=== PATIENT | female | born 1975 | race Caucasian/White ===

== ENCOUNTER 2018-11-20 17:47 | Emergency (ER) | payer SELFPAY ==
[2018-11-20] MEDS ORDERED: Famotidine/PF 20 mg/2ml Vial ONE (17:52)
[2018-11-20] MEDS ORDERED: Dexamethasone 10 MG/ML VIAL ONE (17:52)
[2018-11-20] MEDS ORDERED: Ondansetron PF 4 MG/2 ML Vial ONE (17:53)
[2018-11-20 18:05] LABS: Lavender RECEIVED; Red RECEIVED
[2018-11-20] MEDS ORDERED: Sodium Chloride For Inhalation 0.9% 3 ML NEB ONE ×2 (18:07→18:08)
[2018-11-20] MEDS ORDERED: EPINEPHrine 1 MG/ML AMP ONE (18:21)
--- NOTE | 2018-11-20 19:48 | RAD ---
PORTABLE CHEST: Date: 11-20-18 Provided Clinical History: Shortness of breath. FINDINGS: No comparisons. The cardiac silhouette is normal for portable technique. Nodular density left suprahilar region. Lung s appear otherwise clear. No pleural fluid or pneumothorax apparent. IMPRESSION: Left suprahilar nodular opacity for which follow up PA and lateral views of the chest are recommended . POS: JOSE
== END 2018-11-20 19:48 | disposition home or self-care (01) ==
LOC: ERS 17:47
DX: T88.6XXA Anaphylactic reaction due to adverse effect of correct drug or medicament properly administered, initial encounter (principal); T36.0X5A Adverse effect of penicillins, initial encounter; R91.1 Solitary pulmonary nodule; I11.0 Hypertensive heart disease with heart failure; I50.9 Heart failure, unspecified; F31.9 Bipolar disorder, unspecified; F17.210 Nicotine dependence, cigarettes, uncomplicated
CPT/HCPCS: 71045; 93005; 96372; 96374; 96375; J0171; J1100; J2405; S0028

== ENCOUNTER 2019-02-19 23:50 | Emergency (ER) | payer SELFPAY ==
[2019-02-20] MEDS ORDERED: Nitroglycerin 2% Ointment 1 INCH/1 GM Packet ONE (00:45)
[2019-02-20] MEDS ORDERED: Furosemide 40 MG/4 ML VIAL ONE (00:45)
[2019-02-20 00:48] LABS: Bilirubin Negative (Negative); Blood, Urine Negative (Negative); Clarity CLEAR (Clear); Glucose, Urine (Dipstick) Negative (Negative); Leukocyte Negative (Negative); Nitrite Negative (Negative); Protein, Urine (Dipstick) Negative (Neg-Trace); Specific Gravity, Urine 1.006 (1.002-1.036); Urobilinogen 0.2 mg/dL (0.2-1.0)
[2019-02-20 01:06] LABS: #Basophils 0.1 thou/uL (0.0-0.2); #Eosinphils 0.4 thou/uL (0.0-0.7); #Lymphocytes 3.9 thou/uL (1.20-3.40); #Monocytes 0.8 thou/uL (0.11-0.59); #Neutrophils 8.3 thou/uL (1.40-6.50); %Basophils 0.6 % (0.0-1.0); %Eosinophils 2.8 % (0.0-10.0); %Lymphocytes 29.1 % (21.0-51.0); %Monocytes 6.2 % (0.0-10.0); %Neutrophils 61.3 % (42.0-75.0); Hemoglobin 14.5 g/dL (12.0-16.0); Mean Corpuscular HGB CONC 33.8 g/dL (32.0-36.0); Mean Corpuscular Hemoglobin 29.6 pg (27.0-31.0); Mean Corpuscular Volume 87.5 fL (78.0-98.0); Mean Platelet Volume 7.7 fL (7.4-10.4); Platelet Count 248 thou/uL (130-400); RBC Distribution Width 13.2 % (11.5-14.5); Red Blood Cell (RBC) Count 4.92 mill/uL (4.20-5.40); White Blood Cell (WBC) Count 13.5 thou/uL (4.8-10.8)
[2019-02-20 01:19] LABS: BHCG - Serum Negative (NEGATIVE); Pregs Control Background? CLEAR/WHITE (CLR/WHITE); Pregs Control Bar Appear? YES (CONTROL BAR)
[2019-02-20 01:28] LABS: ALT (SGPT) 13 U/L (8-55); AST (SGOT) 10 U/L (5-34); Albumin 3.7 g/dL (3.5-5.0); Alkaline Phosphatase 106 U/L (40-150); Anion Gap 13 mmol/L (10-20); BUN (Urea Nitrogen) 7 mg/dL (7.0-18.7); Bilirubin, Total 0.4 mg/dL (0.2-1.2); Calc. Creatinine Clearance 0 mL/min (70-130); Calcium 9.4 mg/dL (7.8-10.44); Carbon Dioxide 27 mmol/L (22-29); Chloride 103 mmol/L (98-107); Estimated GFR-MDRD 74; Glucose 116 mg/dL (70-105); Potassium 3.3 mmol/L (3.5-5.1); Protein, Total 6.7 g/dL (6.0-8.3); Sodium 140 mmol/L (136-145)
--- NOTE | 2019-02-20 07:36 | RAD ---
XR Chest 1 View Portable History: [Dyspnea] Comparison: Radiograph November 2018 Findings: Heart size upper limits of normal. Mild pulmonary venous congestion. Similar appearance nod ular density left upper lobe. Impression: Cardiomegaly and mild pulmonary venous congestion, although improved from November 2018. N odular density left upper lobe is similar. Nonemergent CT of the chest may be beneficial.
--- NOTE | 2019-02-22 14:36 | EKG ---
Test Reason : SOB Blood Pressure : / mmHG Vent. Rate : 077 BPM Atrial Rate : 077 BPM P-R Int : 188 ms QRS Dur : 096 ms QT Int : 432 ms P-R-T Axes : 035 018 050 degrees QTc Int : 488 ms Normal sinus rhythm Prolonged QT Abnormal ECG Confirmed by GEORGE CARLISLE ([id number]), telegraph editor ROC OLIVEROS ([id number]) on 02/22/2019 2:35:56 PM Referred By: Confirmed By:GEORGE CARLISLE
== END 2019-02-20 02:25 | disposition home or self-care (01) ==
LOC: ERS 23:50
DX: I11.0 Hypertensive heart disease with heart failure (principal); I50.9 Heart failure, unspecified; F17.210 Nicotine dependence, cigarettes, uncomplicated; Z79.891 Long term (current) use of opiate analgesic; Z79.899 Other long term (current) drug therapy; Z79.51 Long term (current) use of inhaled steroids
CPT/HCPCS: 71045; 80053; 81003; 83880; 84484; 84703; 85025; 93005; 96374; J1940

== ENCOUNTER 2019-04-14 15:39 | Emergency (ER) | payer SELFPAY ==
[2019-04-14 17:04] LABS: #Basophils 0.1 thou/uL (0.0-0.2); #Eosinphils 0.3 thou/uL (0.0-0.7); #Lymphocytes 3.4 thou/uL (1.20-3.40); #Monocytes 0.8 thou/uL (0.11-0.59); #Neutrophils 8.2 thou/uL (1.40-6.50); %Basophils 0.8 % (0.0-1.0); %Eosinophils 2.4 % (0.0-10.0); %Lymphocytes 26.5 % (21.0-51.0); %Monocytes 6.5 % (0.0-10.0); %Neutrophils 63.9 % (42.0-75.0); Hemoglobin 14.8 g/dL (12.0-16.0); Mean Corpuscular Hemoglobin 29.5 pg (27.0-31.0); Mean Corpuscular Volume 86.9 fL (78.0-98.0); Mean Platelet Volume 7.3 fL (7.4-10.4); Platelet Count 270 thou/uL (130-400); RBC Distribution Width 12.9 % (11.5-14.5); Red Blood Cell (RBC) Count 5.01 mill/uL (4.20-5.40); White Blood Cell (WBC) Count 12.9 thou/uL (4.8-10.8)
--- NOTE | 2019-04-14 17:20 | RAD ---
RADIOGRAPH CHEST 1 VIEW: DATE: 04/14/2019 TIME: 5:05 PM HISTORY: 43-year-old female with hypertension. Chest pain. COMPARISON: 02/20/2019 FINDINGS: Enlargement of the transverse diameter of cardiac shadow. At least some of this is due to magnificati on. Mild pulmonary venous engorgement. Diffuse mild nodular interstitial densities appear more prominent on the current study, probably due to technical differences. No consolidation. Faint questi onable left upper lobe ill-defined nodular density previously mentioned is more difficult to appreciate on the current study. No pneumothorax. No effacement of lateral costophrenic angles. IMPRESSION: Questionable mild pulmonary venous engorgement. Prominent interstitial markings. Nonspecific.
--- NOTE | 2019-04-14 17:22 | RAD ---
4 views right knee. HISTORY: Twisting injury to right knee with pain. AP, lateral and both oblique views right knee obtained. 4 views right knee demonstrate no evidence of right knee fractures, subluxations or bony lesions. IMPRESSION: Normal 4 views right knee.
[2019-04-14 17:26] LABS: ALT (SGPT) 12 U/L (8-55); AST (SGOT) 11 U/L (5-34); Albumin 3.9 g/dL (3.5-5.0); Alkaline Phosphatase 111 U/L (40-150); Anion Gap 11 mmol/L (10-20); BUN (Urea Nitrogen) 9 mg/dL (7.0-18.7); Bilirubin, Total 0.4 mg/dL (0.2-1.2); Calc. Creatinine Clearance 0 mL/min (70-130); Carbon Dioxide 27 mmol/L (22-29); Chloride 104 mmol/L (98-107); Estimated GFR-MDRD 74; Globulin 2.9 g/dL (2.4-3.5); Glucose 107 mg/dL (70-105); Potassium 3.1 mmol/L (3.5-5.1); Protein, Total 6.8 g/dL (6.0-8.3); Sodium 139 mmol/L (136-145)
--- NOTE | 2019-04-19 11:22 | EKG ---
Test Reason : Blood Pressure : / mmHG Vent. Rate : 088 BPM Atrial Rate : 088 BPM P-R Int : 188 ms QRS Dur : 092 ms QT Int : 430 ms P-R-T Axes : 042 009 057 degrees QTc Int : 520 ms Normal sinus rhythm Prolonged QT Abnormal ECG Confirmed by STEVEN NEWELL, TREE Martinez ([id number]), video editor ROC OLIVEROS ([id number]) on 04/19/2019 11:21:28 AM Referred By: Confirmed By:TREE HARRIS MD
== END 2019-04-14 20:37 | disposition home or self-care (01) ==
LOC: ERS 15:39
DX: S86.911A Strain of unspecified muscle(s) and tendon(s) at lower leg level, right leg, initial encounter (principal); I10 Essential (primary) hypertension; F31.9 Bipolar disorder, unspecified; F17.210 Nicotine dependence, cigarettes, uncomplicated; X50.1XXA Overexertion from prolonged static or awkward postures, initial encounter
CPT/HCPCS: 36415; 71045; 80053; 83880; 84484; 85025; 93005

== ENCOUNTER 2020-11-30 14:34 | Outpatient (CLI) | payer OTHER ==
--- NOTE | 2020-11-30 14:57 | RAD ---
PA AND LATERAL VIEWS OF THE CHEST: 11/30/20 HISTORY: COPD and asthma. COMPARISON: 04/19/19. FINDINGS: the heart size is normal. The lungs are well expanded without lobar consolidation, pneumothoraces or pleural effusions. No acute osseous abnormalities are seen. IMPRESSION: No radiographic evidence of acute cardiopulmonary process. POS: AH
== END 2020-11-30 14:35 | disposition home or self-care (01) ==
LOC: SCSRAD 14:34
PROVIDERS: ATTEND Nurse Practitioner Family
DX: R91.8 Other nonspecific abnormal finding of lung field (principal)
CPT/HCPCS: 71046

== ENCOUNTER 2021-01-04 11:26 | Inpatient (IN) | payer OTHER ==
[~2021-01-04 11:26] MED LIST: FLU VACC QS2020-21(6MOS UP)/PF 60 MCG/0.5 ML SYRINGE IM ONE
--- NOTE | 2021-01-04 11:53 | RAD ---
Exam: Chest one view HISTORY:Chest pain Comparison: 04/14/2019, 11/30/2020 FINDINGS: Cardiac silhouette: Normal Aorta: Unremarkable Pulmonary vessels: Normal Costophrenic angles: Clear LUNGS: No masses or consolidation. Pneumothorax: None Osseous abnormalities: None IMPRESSION: No acute cardiopulmonary process.
[2021-01-04 11:59] LABS: #Basophils 0.1 thou/uL (0.0-0.2); #Eosinphils 0.3 thou/uL (0.0-0.7); #Lymphocytes 2.8 thou/uL (1.20-3.40); #Monocytes 0.5 thou/uL (0.11-0.59); #Neutrophils 6.4 thou/uL (1.40-6.50); %Basophils 0.7 % (0.0-1.0); %Eosinophils 3.2 % (0.0-10.0); %Lymphocytes 27.7 % (21.0-51.0); %Monocytes 4.9 % (0.0-10.0); %Neutrophils 63.5 % (42.0-75.0); Hemoglobin 14.7 g/dL (12.0-16.0); Mean Corpuscular HGB CONC 33.6 g/dL (32.0-36.0); Mean Corpuscular Hemoglobin 29.6 pg (27.0-31.0); Mean Corpuscular Volume 88.1 fL (78.0-98.0); Mean Platelet Volume 7.5 fL (7.4-10.4); Platelet Count 258 thou/uL (130-400); RBC Distribution Width 13.5 % (11.5-14.5); Red Blood Cell (RBC) Count 4.98 mill/uL (4.20-5.40); White Blood Cell (WBC) Count 10.1 thou/uL (4.8-10.8)
[2021-01-04] MEDS ORDERED: Aspirin Chewable 81 MG TAB ONE (12:06)
[2021-01-04 12:40] LABS: ALT (SGPT) 15 U/L (8-55); AST (SGOT) 13 U/L (5-34); Albumin 3.7 g/dL (3.5-5.0); Alkaline Phosphatase 104 U/L (40-110); Anion Gap 12 mmol/L (10-20); BUN (Urea Nitrogen) 8 mg/dL (7.0-18.7); Bilirubin, Total 0.4 mg/dL (0.2-1.2); CK (CPK) 97 U/L (29-168); Calc. Creatinine Clearance 0 mL/min (70-130); Calcium 8.4 mg/dL (7.8-10.44); Carbon Dioxide 29 mmol/L (22-29); Chloride 100 mmol/L (98-107); Globulin 3.1 g/dL (2.4-3.5); Glucose 196 mg/dL (70-105); Lipase 14 U/L (8-78); Potassium 3.2 mmol/L (3.5-5.1); Protein, Total 6.8 g/dL (6.0-8.3); Sodium 138 mmol/L (136-145)
[2021-01-04 16:26] LABS: Troponin I Less than 0.010 ng/mL (< 0.028)
[2021-01-04] MEDS ORDERED: Acetaminophen 325 MG TAB PO PRN (17:30)
[2021-01-04] MEDS ORDERED: Ondansetron PF 4 MG/2 ML Vial IVP PRN (17:30)
[2021-01-04] MEDS ORDERED: Albuterol Sulfate 2.5 mg/3 ml Neb NEB PRN (17:33)
[2021-01-04] MEDS ORDERED: Potassium Chloride 20 MEQ TAB PO SCH (17:45)
[2021-01-04] MEDS ORDERED: Magnesium Oxide 400 MG TAB PO SCH (17:45)
--- NOTE | 2021-01-04 18:40 | PDOC.HHP ---
Hospitalist HPI Chest pain History of Present Illness: Patient is 45-year-old female with PMH of HTN chronic systolic CHF (EF 40-45%), asthma, obesity, tobacco abuse who presents to the ED with substernal chest pain that started 2 weeks ago. Pain is intermittent, pressure-like, radiates to the right shoulder and right neck area, associated with shortness of breath and lightheadedness. She reports chronic cough due to her asthma, this is at her baseline. She states she was seen by Dr. Harris in November, echo and stress test were ordered at that time, however she was only able to get the echo, not the stress test due to high co-pay. She says Echo done on December 13 showed EF of 40- 45%. Allergies/Adverse Reactions: Allergy/AdvReac Type Severity Reaction Status Date / Time amoxicillin Allergy Unverified 01/04/21 17:31 Past History: PMH: HTN chronic systolic CHF (EF 40-45%), asthma, obesity, tobacco abuse Surgical history: , hysterectomy, right knee surgery Family history: No known family history of heart disease Social history: She smokes 1 pack of cigarettes per day, has been smoking for the last 30 years. Drinks alcohol occasionally. Denies drug use Hospitalist HPI ROS Constitutional: denies: fever, chills Eyes: reports: vision change (Chronic, intermittent) ENT: denies: throat pain Respiratory: reports: cough, dry, shortness of breath Cardiovascular: reports: chest pain Gastrointestinal: denies: nausea, vomiting Genitourinary: denies: dysuria Skin: denies: rash Other: Chronic intermittent headache Hospitalist Exam General Appearance: NAD, awake alert General - other findings: Obese Eye: PERRL ENT: moist mucosa Neck: supple, no JVD Heart: RRR, no murmur Respiratory: no tachypnea Respiratory - other findings: Minimal wheezing bilaterally Gastrointestinal: soft, non-tender, non-distended, normal bowel sounds Extremities: no edema Neurological: normal sensation to touch, no weakness Musculoskeletal: normal strength Psychiatric: normal affect Hospitalist Results Result Diagrams: 01/04/21 11:49 01/04/21 11:49 Lab results: Laboratory Last Values WBC 10.1 thou/uL (4.8-10.8) 01/04/21 11:49 RBC 4.98 mill/uL (4.20-5.40) 01/04/21 11:49 Hgb 14.7 g/dL (12.0-16.0) 01/04/21 11:49 Hct 43.9 % (36.0-47.0) 01/04/21 11:49 MCV 88.1 fL (78.0-98.0) 01/04/21 11:49 MCH 29.6 pg (27.0-31.0) 01/04/21 11:49 MCHC 33.6 g/dL (32.0-36.0) 01/04/21 11:49 RDW 13.5 % (11.5-14.5) 01/04/21 11:49 Plt Count 258 thou/uL (130-400) 01/04/21 11:49 MPV 7.5 fL (7.4-10.4) 01/04/21 11:49 Neutrophils % 63.5 % (42.0-75.0) 01/04/21 11:49 Lymphocytes % 27.7 % (21.0-51.0) 01/04/21 11:49 Monocytes % 4.9 % (0.0-10.0) 01/04/21 11:49 Eosinophils % 3.2 % (0.0-10.0) 01/04/21 11:49 Basophils % 0.7 % (0.0-1.0) 01/04/21 11:49 Neutrophils # 6.4 thou/uL (1.40-6.50) 01/04/21 11:49 Lymphocytes # 2.8 thou/uL (1.20-3.40) 01/04/21 11:49 Monocytes # 0.5 thou/uL (0.11-0.59) 01/04/21 11:49 Eosinophils # 0.3 thou/uL (0.0-0.7) 01/04/21 11:49 Basophils # 0.1 thou/uL (0.0-0.2) 01/04/21 11:49 Sodium 138 mmol/L (136-145) 01/04/21 11:49 Potassium 3.2 mmol/L (3.5-5.1) L 01/04/21 11:49 Chloride 100 mmol/L (98-107) 01/04/21 11:49 Carbon Dioxide 29 mmol/L (22-29) 01/04/21 11:49 Anion Gap 12 mmol/L (10-20) 01/04/21 11:49 BUN 8 mg/dL (7.0-18.7) 01/04/21 11:49 Creatinine 0.86 mg/dL (0.6-1.1) 01/04/21 11:49 Estimated GFR (MDRD) 71 01/04/21 11:49 Glucose 196 mg/dL (70-105) H 01/04/21 11:49 Calcium 8.4 mg/dL (7.8-10.44) 01/04/21 11:49 Total Bilirubin 0.4 mg/dL (0.2-1.2) 01/04/21 11:49 AST 13 U/L (5-34) 01/04/21 11:49 ALT 15 U/L (8-55) 01/04/21 11:49 Alkaline Phosphatase 104 U/L (40-110) 01/04/21 11:49 Creatine Kinase 97 U/L (29-168) 01/04/21 11:49 Troponin I Less than 0.010 ng/mL (< 0.028) 01/04/21 15:43 Serum Total Protein 6.8 g/dL (6.0-8.3) 01/04/21 11:49 Albumin 3.7 g/dL (3.5-5.0) 01/04/21 11:49 Globulin 3.1 g/dL (2.4-3.5) 01/04/21 11:49 Albumin/Globulin Ratio 1.2 g/dL (1.2-2.2) 01/04/21 11:49 Lipase 14 U/L (8-78) 01/04/21 11:49 Chest x-ray Status: image reviewed by ca Hospitalist H&P A/P (1) Chest pain Code(s): R07.9 - CHEST PAIN, UNSPECIFIED Status: Acute Assessment and Plan: Patient presented with atypical chest pain. Troponin negative. EKG showed no acute ST/T changes. Plan: -Nitro SL prn -Cardiology consulted -NPO PMN (2) Hyperglycemia Code(s): R73.9 - HYPERGLYCEMIA, UNSPECIFIED Status: Acute Assessment and Plan: BG level is elevated. Patient denies hx of diabetes. Plan: -Hgb A1c (3) Hypokalemia Code(s): E87.6 - HYPOKALEMIA Status: Acute Assessment and Plan: Plan: -monitor and replace (4) Chronic systolic CHF (congestive heart failure) Code(s): I50.22 - CHRONIC SYSTOLIC (CONGESTIVE) HEART FAILURE Status: Chronic Assessment and Plan: Euvolemic at this time. Plan: -cont Lasix (5) Asthma Code(s): J45.909 - UNSPECIFIED ASTHMA, UNCOMPLICATED Status: Chronic Assessment and Plan: Plan: -Duoneb prn
[2021-01-04] MEDS ORDERED: Communication Order-Pharmacy FS SCH (18:45)
[2021-01-04 19:04] LABS: Troponin I Less than 0.010 ng/mL (< 0.028)
--- NOTE | 2021-01-04 19:07 | CON ---
DATE OF CONSULTATION: HISTORY OF PRESENT ILLNESS: The patient is a 45-year-old woman, who presented with substernal chest discomfort. The patient has a previous history of hypertension and cerebrovascular accident. She was recently seen for cardiac evaluation. She underwent an echocardiogram, which revealed a mild decreased left ventricular ejection fraction of 40% to 45%. The patient was scheduled to undergo a stress test. The patient presents to the emergency room with midsternal chest discomfort, that radiates into her right jaw and down her right arm. She states this lasts up to several minutes. The patient also reports having a persistent discomfort in her mid chest. PAST MEDICAL HISTORY: 1. CVA. 2. Hypertension. 3. Asthma. 4. Bipolar disorder. 5. Cardiomyopathy. PAST SURGICAL HISTORY: , hysterectomy, and knee surgery. SOCIAL HISTORY: Long history of tobacco abuse. FAMILY HISTORY: Positive family history of coronary artery disease. MEDICATIONS: 1. Lasix 20 mg daily. 2. Potassium 8 mEq two tablets daily. 3. Diovan/hydrochlorothiazide 325/25 daily. 4. Aspirin 81 daily. 5. Ventolin. ALLERGIES: AMOXICILLIN, LISINOPRIL, AND AUGMENTIN. REVIEW OF SYSTEMS: Ten-point system otherwise unremarkable except for increasing dyspnea and headaches. PHYSICAL EXAMINATION: GENERAL: This is an obese woman, in mild distress. VITAL SIGNS: Blood pressure 142/75. NECK: No jugular venous distention. LUNGS: Clear to auscultation. HEART: Regular rate and rhythm. Normal S1 and S2 with a 1/6 systolic murmur. ABDOMEN: Distended. EXTREMITIES: Show trace edema. VASCULAR: Radial pulses 2+. LABORATORY DATA: Sodium 138, potassium 3.2, chloride 100, bicarbonate 29, BUN 8, and creatinine 0.86. Troponin less than 0.01. White blood cell count 10.1, hemoglobin 14.2, hematocrit 43.9, and platelets are 258. EKG reveals her to have normal sinus rhythm with a prolonged QT interval. No acute ST-T wave changes. IMPRESSION AND PLAN: 1. Chest pain. 2. Cardiomyopathy. 3. Hypertension. 4. History of cerebrovascular accident. 5. Tobacco abuse. This patient presents with recurrent chest discomfort. She was found recently to have a cardiomyopathy. The patient will need to undergo further evaluation with stress testing or cardiac catherization during this hospitalization. We will follow this patient with you throughout her hospitalization. Job ID: [id number] [facility]
[2021-01-04 22:12] VITALS: BMI 50.3
[2021-01-05 01:20] LABS: SARS-CoV-2 PCR by NAA Not Detected (NotDetected)
[2021-01-05] MEDS: Aspirin Chewable 81 MG TAB PO SCH (05:10)
[2021-01-05] MEDS: Potassium Chloride 10 MEQ TAB PO SCH (05:10)
[2021-01-05] MEDS: Furosemide 20 MG TAB PO SCH (05:11)
[2021-01-05 06:10] LABS: #Basophils 0.1 thou/uL (0.0-0.2); #Eosinphils 0.4 thou/uL (0.0-0.7); #Lymphocytes 3.5 thou/uL (1.20-3.40); #Monocytes 0.6 thou/uL (0.11-0.59); #Neutrophils 4.8 thou/uL (1.40-6.50); %Basophils 0.8 % (0.0-1.0); %Eosinophils 3.8 % (0.0-10.0); %Monocytes 6.7 % (0.0-10.0); %Neutrophils 51.7 % (42.0-75.0); Mean Corpuscular Volume 88.3 fL (78.0-98.0); Mean Platelet Volume 7.3 fL (7.4-10.4); Platelet Count 249 thou/uL (130-400); RBC Distribution Width 13.2 % (11.5-14.5); Red Blood Cell (RBC) Count 4.66 mill/uL (4.20-5.40); White Blood Cell (WBC) Count 9.4 thou/uL (4.8-10.8)
[2021-01-05 06:31] LABS: Anion Gap 12 mmol/L (10-20); BUN (Urea Nitrogen) 11 mg/dL (7.0-18.7); Calc. Creatinine Clearance 164 mL/min (70-130); Calcium 8.6 mg/dL (7.8-10.44); Carbon Dioxide 30 mmol/L (22-29); Cardiac Risk 6.3 (Less than 4.5); Chloride 102 mmol/L (98-107); Cholesterol 184 mg/dl (< 200 Desired); Glucose 115 mg/dL (70-105); HDL Cholesterol 29 mg/dL (>60 Neg Risk); LDL Cholesterol, Calculated 94 mg/dL; Potassium 3.6 mmol/L (3.5-5.1); Sodium 140 mmol/L (136-145); Triglycerides 306 mg/dL (Less than 150)
[2021-01-05] MEDS: Valsartan 80 MG TAB PO SCH (09:28)
[2021-01-05] MEDS: Hydrochlorothiazide 25 MG TAB PO SCH (09:28)
--- NOTE | 2021-01-05 11:18 | PDOC.HOSPP ---
- Subjective Encounter Date: 01/05/21 Subjective: Patient states she has 2/10 chest pressure. She denies SOB. Also has int ermittent cough. - Objective Vital Signs & Weight: Vital Signs (12 hours) Temp Pulse Resp BP BP Pulse Ox 01/05/21 07:18 97.9 F 66 18 125/59 L 96 01/05/21 05:00 97.8 F 66 14 137/62 96 01/05/21 02:56 95 01/05/21 00:46 98.5 F 74 16 149/66 H 95 Weight Weight 257 lb 8 oz I&O: 01/04/21 01/05/21 01/06/21 06:59 06:59 06:59 Intake Total 557 Balance 557 Result Diagrams: 01/05/21 06:02 01/05/21 06:02 Hospitalist ROS - Review of Systems Respiratory: reports: cough. denies: shortness of breath Cardiovascular: reports: chest pain - Medication Medications: Active Medications Generic Name Dose Route Start Last Admin Trade Name Freq PRN Reason Stop Dose Admin Aspirin 81 mg 01/05/21 09:00 01/05/21 05:10 Aspirin Chewable 81 Mg Tab PO 81 mg DAILY RAÚL Administration Furosemide 20 mg 01/05/21 09:00 01/05/21 05:11 Furosemide 20 Mg Tab PO 20 mg DAILY RAÚL Administration Hydrochlorothiazide 25 mg 01/05/21 09:00 01/05/21 09:28 Hydrochlorothiazide 25 Mg Tab PO 25 mg DAILY RAÚL Administration Potassium Chloride 10 meq 01/05/21 09:00 01/05/21 05:10 Potassium Chloride 10 Meq Tab PO 10 meq DAILY RAÚL Administration Valsartan 160 mg 01/05/21 09:00 01/05/21 09:28 Valsartan 80 Mg Tab PO 160 mg DAILY RAÚL Administration Hospitalist Exam Vitals: Vital Signs (12 hours) Temp Pulse Resp BP BP Pulse Ox 01/05/21 07:18 97.9 F 66 18 125/59 L 96 01/05/21 05:00 97.8 F 66 14 137/62 96 01/05/21 02:56 95 01/05/21 00:46 98.5 F 74 16 149/66 H 95 Weight Weight 257 lb 8 oz General Appearance: NAD, awake alert ENT: moist mucosa Heart: RRR, no murmur Respiratory: CTAB, no wheezes Gastrointestinal: soft, non-tender, non-distended, normal bowel sounds Extremities: no edema Psychiatric: normal affect Hosp A/P (1) Chest pain Code(s): R07.9 - CHEST PAIN, UNSPECIFIED Status: Acute Plan: Troponin negative x3. Plan is for [facility] tomorrow morning by Dr. Harris. Plan: -Nitro SL prn -NPO PMN -Cardiology on board. Plan for [facility] tomorrow. (2) Chronic systolic CHF (congestive heart failure) Code(s): I50.22 - CHRONIC SYSTOLIC (CONGESTIVE) HEART FAILURE Status: Chronic Plan: Euvolemic Plan: -Continue Lasix (3) Pre-diabetes Code(s): R73.03 - PREDIABETES Status: Chronic Plan: Hgb A1c: 6. Plan: -will start on Metformin on discharge -discussed about lifestyle modification with diet and exercise (4) HLD (hyperlipidemia) Code(s): E78.5 - HYPERLIPIDEMIA, UNSPECIFIED Status: Chronic Plan: Plan: -will start her on Lipitor (5) Asthma Code(s): J45.909 - UNSPECIFIED ASTHMA, UNCOMPLICATED Status: Chronic Plan: stable. Plan: -cont home med -Albuterol neb prn (6) Hypokalemia Code(s): E87.6 - HYPOKALEMIA Status: Acute Plan: resolved. Plan: -cont KCL supplement
[2021-01-05] MEDS ORDERED: Communication Order-Pharmacy FS SCH (16:00)
--- NOTE | 2021-01-05 16:01 | PRG ---
DATE OF SERVICE: 01/05/2021 SUBJECTIVE: Ms. Samuel Lopez is doing well. No current complaints. OBJECTIVE: VITAL SIGNS: Blood pressure 111/55, pulse 74, and temperature 97. LUNGS: Clear to auscultation. HEART: Regular rate and rhythm. ABDOMEN: Soft, nontender, and nondistended. EXTREMITIES: No edema. IMPRESSION: 1. Chest pain. 2. Mild cardiomyopathy. 3. Tobacco abuse. 4. Hypertension. RECOMMENDATIONS: Samuel Lopez states she has cut back on her tobacco from one pack per day to one pack per 3 days. She has also been more compliant with her blood pressure medication. She says her blood pressure has been improved. She has had recurrent chest pain, is a high risk for underlying coronary artery disease. I would recommend coronary drop plus PCI. I discussed procedure in full detail with Ms. Samuel Lopez. Risks include, but not limited to the following; also discussed drug-coated versus nondrug-coated stent placement. There if needed. I also had a long discussion about drug-coated versus nondrug-coated stent placement. She states she can take Plavix for at least 6 months if needed. She has stated she has been noncompliant in the past, but states she has been compliant recently. No back injections or surgeries planned. No bleeding issues in the past. Otherwise, I have no further recommendations. Job ID: [id number]
[2021-01-05] MEDS: Mometasone 200 MCG/Formoterol 5 MCG 120 PUFF INHALER INH SCH (20:22)
[2021-01-05] MEDS ORDERED: Atorvastatin Calcium 40 MG TAB PO SCH (21:00)
[2021-01-06] MEDS: Aspirin Chewable 81 MG TAB PO SCH (05:08)
[2021-01-06] MEDS: Hydrochlorothiazide 25 MG TAB PO SCH (05:08)
[2021-01-06] MEDS: Potassium Chloride 10 MEQ TAB PO SCH (05:08)
[2021-01-06] MEDS: Furosemide 20 MG TAB PO SCH (05:09)
[2021-01-06] MEDS: Valsartan 80 MG TAB PO SCH (05:09)
[2021-01-06 05:56] LABS: #Basophils 0.1 thou/uL (0.0-0.2); #Eosinphils 0.4 thou/uL (0.0-0.7); #Lymphocytes 3.3 thou/uL (1.20-3.40); #Monocytes 0.5 thou/uL (0.11-0.59); %Eosinophils 4.1 % (0.0-10.0); %Lymphocytes 35.4 % (21.0-51.0); %Monocytes 5.8 % (0.0-10.0); %Neutrophils 53.7 % (42.0-75.0); Hemoglobin 13.9 g/dL (12.0-16.0); Mean Corpuscular HGB CONC 33.4 g/dL (32.0-36.0); Mean Corpuscular Hemoglobin 29.6 pg (27.0-31.0); Mean Corpuscular Volume 88.6 fL (78.0-98.0); Mean Platelet Volume 7.2 fL (7.4-10.4); Platelet Count 243 thou/uL (130-400); RBC Distribution Width 13.4 % (11.5-14.5); Red Blood Cell (RBC) Count 4.71 mill/uL (4.20-5.40); White Blood Cell (WBC) Count 9.2 thou/uL (4.8-10.8)
[2021-01-06 06:16] LABS: Anion Gap 9 mmol/L (10-20); BUN (Urea Nitrogen) 13 mg/dL (7.0-18.7); Calc. Creatinine Clearance 160 mL/min (70-130); Calcium 8.6 mg/dL (7.8-10.44); Carbon Dioxide 31 mmol/L (22-29); Chloride 101 mmol/L (98-107); Glucose 123 mg/dL (70-105); Magnesium 1.7 mg/dL (1.6-2.6); Potassium 3.3 mmol/L (3.5-5.1); Sodium 138 mmol/L (136-145)
[2021-01-06] MEDS ORDERED: Heparin 10,000 UNITS/ 10 ML VIAL ONE (06:33)
[2021-01-06] MEDS ORDERED: Nitroglycerin 100MG/250ML BOT 250 ML ONE (06:34)
[2021-01-06] MEDS ORDERED: Verapamil 5 MG/2 ML VIAL ONE (06:34)
[2021-01-06] MEDS ORDERED: Lidocaine 1% (PF) 30 ML VIAL ONE (07:17)
[2021-01-06] MEDS ORDERED: Midazolam HCl 2 mg/2 ml Vial ONE (07:22)
[2021-01-06] MEDS ORDERED: Fentanyl 100 MCG/2 ML VIAL ONE (07:22)
[2021-01-06] MEDS: Mometasone 200 MCG/Formoterol 5 MCG 120 PUFF INHALER INH SCH (07:38)
[2021-01-06] MEDS ORDERED: Acetaminophen/Codeine 30-300mg Tablet PO PRN ×2 (07:41)
[2021-01-06] MEDS ORDERED: Nitroglycerin 0.4 MG TAB (25 Tab Bottle) SL PRN (07:41)
[2021-01-06] MEDS ORDERED: Sodium Chloride 0.9% 200 ML IV PRN (07:41)
[2021-01-06] MEDS ORDERED: Sodium Chloride 0.9% 1,000 ML IV SCH (07:45)
[2021-01-06] MEDS ORDERED: Carvedilol 6.25 MG TAB PO SCH (09:00)
[2021-01-06] MEDS ORDERED: Iopamidol 370 76% 100 ML VIAL ONE (10:18)
[2021-01-06 12:27] VITALS: TEMP 97.5
[2021-01-06 12:28] VITALS: BP 138/85
--- NOTE | 2021-01-06 12:46 | PDOC.DS.DS ---
Provider Date of Admission: 01/04/21 15:10 Date of Discharge: 01/06/21 Admitting Provider: Paolo Gamez MD Primary Care Physician: Sis Perez APRN Course Hospital Course: Patient is a 5-year-old female with PMH of HTN, nonischemic cardiomyopathy, asthma, obesity, and tobacco abuse who presents to the ED with 2 weeks history of substernal chest pain. Patient was admitted and seen by Dr. Harris, LHC was done and showed no coronary artery disease. Her symptoms improved significantly during her hospitalization. Her chest pain is likely related to her asthma. Extensive counseling was done regarding smoking cessation. Labs showed elevated triglyceride level and blood glucose, Hgb A1c:6. Lifestyle modification with diet and exercise was discussed with the patient. Patient hemodynamically stable on the day of discharge, and would like to go home. Resuscitation Status: 01/04/21 17:30 Resuscitation Status Routine Resuscitation Status: FULL: Full Resuscitation Discussed with: Patient Lab Results: 01/06/21 05:48 01/06/21 05:48 Abnormal Lab Results - Last 48 hrs 01/05/21 06:02: Carbon Dioxide 30 H, Triglycerides 306 H 01/05/21 06:02: MPV 7.3 L, Lymphocytes # 3.5 H, Monocytes # 0.6 H 01/06/21 05:48: Potassium 3.3 L, Carbon Dioxide 31 H, Anion Gap 9 L 01/06/21 05:48: MPV 7.2 L Vitals: Vital Signs (12 hours) Temp Pulse Pulse Pulse Resp BP BP 01/06/21 12:25 97.5 F L 78 15 01/06/21 11:17 74 78 134/75 138/85 01/06/21 08:00 97.8 F 65 15 01/06/21 04:00 97.7 F 66 16 BP BP BP Pulse Ox 01/06/21 12:25 138/85 97 01/06/21 11:17 01/06/21 08:00 149/82 H 95 01/06/21 04:00 133/62 96 Weight Weight 257 lb 8 oz Physical Exam: The patient was seen and examined on the day of discharge. General Appearance: NAD, awake alert ENT: moist mucosa Respiratory: CTAB, no wheezes, no tachypnea Cardiovascular: RRR, no murmur Cardiovascular - other findings: normal capillary refill on right hand Gastrointestinal: soft, non-tender, non-distended Extremities: no edema Musculoskeletal - other findings: no bleeding or swelling on right radial area (C access area) PSYCH: normal affect Problem (1) Chest pain Code(s): R07.9 - CHEST PAIN, UNSPECIFIED Status: Acute (2) Chronic systolic CHF (congestive heart failure) Code(s): I50.22 - CHRONIC SYSTOLIC (CONGESTIVE) HEART FAILURE Status: Chronic (3) Pre-diabetes Code(s): R73.03 - PREDIABETES Status: Chronic (4) HLD (hyperlipidemia) Code(s): E78.5 - HYPERLIPIDEMIA, UNSPECIFIED Status: Chronic (5) Asthma Code(s): J45.909 - UNSPECIFIED ASTHMA, UNCOMPLICATED Status: Chronic (6) Hypokalemia Code(s): E87.6 - HYPOKALEMIA Status: Acute Plan Prescriptions: Carvedilol [Coreg] 3.125 mg PO BID #60 tablet Atorvastatin Calcium [Lipitor] 20 mg PO HS #30 tab Home Medications: Medication Instructions Recorded Confirmed Type Albuterol Sulfate [Proair 1 inh PO DAILY 01/04/21 01/04/21 History Digihaler] Cholecalciferol (Vitamin D3) 1 tab PO DAILY 01/04/21 01/04/21 History [Vitamin D] Cyanocobalamin (Vitamin B-12) 1 tab PO DAILY 01/04/21 01/04/21 History [Vitamin B-12] Fluticasone/Vilanterol [Breo 1 inh PO DAILY 01/04/21 01/04/21 History Ellipta 200-25 Mcg INH] Furosemide 20 mg PO DAILY 01/04/21 01/04/21 History Potassium Chloride 20 meq PO BID 01/04/21 01/04/21 History Valsartan/Hydrochlorothiazide 1 tab PO DAILY 01/04/21 01/04/21 History [Valsartan-Hctz 320-25 mg Tab] Atorvastatin Calcium [Lipitor] 20 mg PO HS #30 tab 01/06/21 Rx Carvedilol [Coreg] 3.125 mg PO BID #60 tablet 01/06/21 Rx Allergies: amoxicillin Allergy (Verified 01/04/21 22:04) throat swells Activity:: Activity as Tolerated Nourishment:: Heart Healthy Diet Therapies:: Outpatient Cardiac Rehab Referrals: Cardiac Rehab - [place] [Outside] - 7 Days (Your doctor has ordered outpatient cardiac rehab for you to begin within 1-2 weeks after you go home from the hospital. The location nearest to you is the [facility]. We will call you in 3-5 days to get you scheduled for your evaluation. If you do not receive a call, please reach out to us at [phone] and request an appointment.) Sis Perez APRN [Primary Care Provider] - 3 Days Av Harris MD [Active] - 3-4 Weeks Disposition: HOME Quality CORE MEASURES:: N/A
[2021-01-06] MEDS ORDERED: Potassium Chloride 20 MEQ TAB PO SCH (13:00)
--- NOTE | 2021-01-07 20:32 | PQF ---
CLINICAL DOCUMENTATION CLARIFICATION FORM: Dear : Paolo Gamez Date / Time: 01/07/21 20:32 Please exercise your independent, professional judgment in responding to the clarification form. Clinical indicators are provided on the bottom of this form for your review Please check appropriate box(es): [ ] Asthma with Exacerbation [ ] Asthma without Exacerbation [ ] Mild intermittent [ x ] Mild persistent [ ] Moderate persistent [ ] Severe Persistent [ ] Status Asthmaticus [ ] Other diagnosis, please specify [ ] Unable to determine Physician Signature: Date/Time: For continuity of documentation, please document condition throughout progress notes and discharge summary. Thank You. To be completed by CDI/Coding staff for physician review: Present Clinical Indicators - Signs / Symptoms / Labs Results and Location in Medical Record [x] Her chest pain is likely related to her asthma DS 01/06 [x] respiratory: no wheezes no tachypnea DS 01/06 [x] Chest Xray: normal Chest Xray 01/04 [x] presenting with chest pain ED Notes 01/04 [x] Respi: 01/04=20 01/05=20 01/06=15 VS 01/04 Present Risk Factors Results and Location in Medical Record [x] Obesity DS 01/06 [x] Smoker DS 01/06 [x] CHF DS 01/06 Present Treatments Results and Location in Medical Record [x] Counseling about smoking cessation DS 01/06 [x] Albuterol 90mcg neb MAR [x] IVF MAR CDS/[place] Preparer Signature: Edilberto Jeanette Pineda Phone #: ext [phone] Date/Time: 01/07/21 This is a permanent part of the Medical Record [facility]
== END 2021-01-06 13:26 | disposition home or self-care (01) | DRG 202 ==
LOC: ERS 11:26 → ERHOLD 15:10 → OBSVTOIN 15:10 → 3SE 19:37
PROVIDERS: ADMIT Internal Medicine; ATTEND Internal Medicine
PROC: 4A023N7 Measurement of Cardiac Sampling and Pressure, Left Heart, Percutaneous Approach (ICD-10-PCS; principal; 2021-01-06)
PROC: B2111ZZ Fluoroscopy of Multiple Coronary Arteries using Low Osmolar Contrast (ICD-10-PCS; 2021-01-06)
PROC: B2151ZZ Fluoroscopy of Left Heart using Low Osmolar Contrast (ICD-10-PCS; 2021-01-06)
PROC: 4A033BC Measurement of Arterial Pressure, Coronary, Percutaneous Approach (ICD-10-PCS; 2021-01-06)
DX: J45.30 Mild persistent asthma, uncomplicated (principal); I50.22 Chronic systolic (congestive) heart failure; I42.8 Other cardiomyopathies; Z68.43 Body mass index [BMI] 50.0-59.9, adult; Z20.822 Contact with and (suspected) exposure to COVID-19; I11.0 Hypertensive heart disease with heart failure; F17.210 Nicotine dependence, cigarettes, uncomplicated; F31.9 Bipolar disorder, unspecified; E66.9 Obesity, unspecified; R73.9 Hyperglycemia, unspecified; E87.6 Hypokalemia; R73.03 Prediabetes; E78.5 Hyperlipidemia, unspecified; Z91.19 Patient's noncompliance with other medical treatment and regimen; Z90.710 Acquired absence of both cervix and uterus; Z86.73 Personal history of transient ischemic attack (TIA), and cerebral infarction without residual deficits
CPT/HCPCS: 36415; 71045; 80048; 80053; 80061; 82550; 83036; 83690; 83735; 84484; 85025; 87635; 93005; 93458; 93798; 94760; 99152; 99153; G0378; J1644; J2001; J2250; J3010; Q9967; U0003; U0005

== ENCOUNTER 2021-01-29 11:27 | Emergency (ER) | payer OTHER ==
[2021-01-29 12:03] LABS: #Basophils 0.1 thou/uL (0.0-0.2); #Eosinphils 0.3 thou/uL (0.0-0.7); #Lymphocytes 2.7 thou/uL (1.20-3.40); #Monocytes 0.5 thou/uL (0.11-0.59); #Neutrophils 6.9 thou/uL (1.40-6.50); %Basophils 0.8 % (0.0-1.0); %Eosinophils 2.9 % (0.0-10.0); %Lymphocytes 25.5 % (21.0-51.0); %Monocytes 4.8 % (0.0-10.0); %Neutrophils 66.1 % (42.0-75.0); Hemoglobin 14.3 g/dL (12.0-16.0); Mean Corpuscular HGB CONC 34.1 g/dL (32.0-36.0); Mean Corpuscular Hemoglobin 30.5 pg (27.0-31.0); Mean Corpuscular Volume 89.3 fL (78.0-98.0); Mean Platelet Volume 7.5 fL (7.4-10.4); Platelet Count 259 thou/uL (130-400); RBC Distribution Width 13.4 % (11.5-14.5); Red Blood Cell (RBC) Count 4.69 mill/uL (4.20-5.40); White Blood Cell (WBC) Count 10.4 thou/uL (4.8-10.8)
[2021-01-29 12:22] LABS: ALT (SGPT) 15 U/L (8-55); AST (SGOT) 13 U/L (5-34); Albumin 3.6 g/dL (3.5-5.0); Alkaline Phosphatase 120 U/L (40-110); Anion Gap 13 mmol/L (10-20); BUN (Urea Nitrogen) 10 mg/dL (7.0-18.7); Bilirubin, Total 0.4 mg/dL (0.2-1.2); Calc. Creatinine Clearance 0 mL/min (70-130); Calcium 8.3 mg/dL (7.8-10.44); Carbon Dioxide 26 mmol/L (22-29); Chloride 101 mmol/L (98-107); Globulin 3.2 g/dL (2.4-3.5); Glucose 182 mg/dL (70-105); Potassium 3.2 mmol/L (3.5-5.1); Protein, Total 6.8 g/dL (6.0-8.3); Sodium 137 mmol/L (136-145)
[2021-01-29] MEDS ORDERED: Iopamidol-370 76% 500 ML 1 ML ONE (12:38)
== END 2021-01-29 13:17 | disposition home or self-care (01) ==
LOC: ERS 11:27
DX: R59.0 Localized enlarged lymph nodes (principal); I11.0 Hypertensive heart disease with heart failure; I50.9 Heart failure, unspecified; J44.9 Chronic obstructive pulmonary disease, unspecified; F17.210 Nicotine dependence, cigarettes, uncomplicated; Z79.899 Other long term (current) drug therapy
CPT/HCPCS: 70491; 71045; 80053; 85025; 87081; 87430; Q9967

== ENCOUNTER 2021-02-14 11:51 | Emergency (ER) | payer OTHER | END 2021-02-14 14:56 | disposition home or self-care (01) | LOC: ERS 11:51 | DX: M79.662 Pain in left lower leg (principal); R60.0 Localized edema; I11.0 Hypertensive heart disease with heart failure; I50.9 Heart failure, unspecified; J44.9 Chronic obstructive pulmonary disease, unspecified; F17.210 Nicotine dependence, cigarettes, uncomplicated ==